=== PATIENT | male | born 1995 | race Two or more races ===

== ENCOUNTER 2024-03-28 01:26 | Emergency (ER) | payer OTHER ==
[~2024-03-28] VITALS: Ht 175.3 cm; Wt 127.0 kg
[2024-03-28] MEDS ORDERED: COZAAR100 MG PO (01:37)
[2024-03-28] MEDS ORDERED: NORVASC10 MG PO (01:38)
[2024-03-28] MEDS ORDERED: ACETAMINOPHEN 500 MG GEL..CAP PO STA (02:09)
[2024-03-28] MEDS ORDERED: NIFEDIPINE 10 MG CAPSULE PO STA (02:09)
[2024-03-28] MEDS ORDERED: ACETAMINOPHEN 500 MG GEL..CAP PO ONE (02:14)
[2024-03-28] MEDS ORDERED: NIFEDIPINE 10 MG CAPSULE PO ONE ×3 (02:14→04:45)
[2024-03-28 02:56] LABS: PH,URINE 5.5 (5.0-8.0); URINE APPEARANCE Clear; URINE BILIRRUBIN Negative (NEGATIVE); URINE BLOOD Negative; URINE COLOR Yellow; URINE GLUCOSE Negative (NEGATIVE); URINE KETONE Negative (NEGATIVE); URINE LEUKOCYTE Trace; URINE NITRATE Negative; URINE PROTEIN Trace (NEGATIVE); URINE UROBILINOGEN 0.2 E.U./dl
[2024-03-28 03:00] LABS: HEMATOCRIT 41.8 % (39.0-48.0); HEMOGLOBIN 14.1 g/dL (13-16.00); MEAN CELL VOLUME 84.3 fL (80.0-100.00); MEAN CORPUSCULAR HEMOGLOBIN 28.5 pg (27.00-32.0); MEAN CORPUSCULAR HGB CONC 33.8 g/dl (32.0-36.0); PLATELET COUNT 307 K/uL (150-450); RED BLOOD COUNT 4.96 M/uL (4.00-6.00); RED CELL DISTRIBUTION WIDTH 13.6 % (11.5-14.5); URINE BACTERIA 11.3 uL (0.0-1933); URINE RBC 9.9 uL (0.0-20.8); URINE WBC 40.1 uL (0.0-23.2)
[2024-03-28 03:01] LABS: URINE CAST 1.06 uL (0.0-1.40)
[2024-03-28 03:17] LABS: CALCIUM 9.3 mg/dL (8.5-10.1); CREATININE SERUM 1.1 mg/dL (0.70-1.30); GFR 80.91; POTASSIUM 4.33 mEq/L (3.5-5.1)
[2024-03-28] MEDS ORDERED: ZITHROMAX500 MG PO (06:14)
[2024-03-28] MEDS ORDERED: ORASEP SPRAY30 ML MM (06:14)
[2024-03-28] MEDS ORDERED: FLONASE ALLERG9.9 ML NASAL (06:14)
== END 2024-03-28 06:17 ==
LOC: ER 01:27
PROVIDERS: General Practice
DX: J02.9 Acute pharyngitis, unspecified (principal); R50.9 Fever, unspecified; I10 Essential (primary) hypertension; Z20.822 Contact with and (suspected) exposure to COVID-19